=== PATIENT | female | born 1940 | race Caucasian/White ===

== ENCOUNTER 2025-05-17 20:41 | Emergency (ER) | payer MEDICARE, OTHER ==
[~2025-05-17] VITALS: Ht 162.6 cm; Wt 61.8 kg
[~2025-05-17 20:41] MED LIST: ATOR40TA PO; LISI20TA28 PO; PROP10TA10 PO
[2025-05-17 20:49] VITALS: TEMP 97.6
--- NOTE | 2025-05-17 20:58 | Physician Documentation ---
History of Present Illness ~ Chief Complaint: Mechanical Fall Stated Complaint: FALL Time Seen by MD: 20:58 Primary Medical Doctor: ELVA CLARK Source: patient, family HPI This is an 84-year-old female who presents after a ground level slip and fall striking her right hip and right wrist, patient reports a skin tear to the right wrist and tenderness to the right hip. Patient reports no head strike, no loss of consciousness, and no blood thinner use. Patient reports she is able to ambulate without pain. Tetanus within 5 Years?: No Medication Reconciliation Allergies: Coded Allergies: No Known Allergies (Unverified , 05/17/23) Scheduled Atorvastatin Calcium* (Lipitor*), 1 TAB PO DAILY, (Reported) Lisinopril (Lisinopril), 20 MG PO Q24H Scheduled PRN Propranolol Hcl* (Inderal*), 1 TAB PO DAILY PRN for for anxiety/agitation, (Reported) Past Medical History Past Medical History: High Cholesterol, Hypertension, Anxiety Other Past Surgical History: skin cancer removal Alcohol Use: Rarely Drug Use: none Lives In: Home Review of Systems ROS As stated above in the HPI, otherwise all systems are reviewed and negative. Physical Exam Physical Exam VITALS: Reviewed and as above. GENERAL: Alert, nontoxic appearing, no apparent distress. HEENT: No facial swelling or ecchymosis, no tenderness to palpation to the scalp and neck including no C-spine tenderness RESPIRATORY: No increased work of breathing, no respiratory distress, speaking in full clear sentences MUSCULOSKELETAL: Right lateral hip mild tenderness to palpation, right knee no tenderness to palpation, right shoulder no tenderness to palpation SKIN: 5 cm crescent shaped skin tear to the posterior aspect of the right wrist Progress Results/Orders Results/Orders Orders - SONIA MCDONNELL Hip Unilateral 2 Views (05/17/25 21:10) Wrist, Complete (3vw Min) (05/17/25 21:10) Completed Orders - SONIA MCDONNELL Hip Unilateral 2 Views (05/17/25 21:10) Wrist, Complete (3vw Min) (05/17/25 21:10) Vital Signs 05/17/25 05/17/25 20:49 22:55 Temp 97.6 Pulse 62 60 Resp 16 16 B/P (MAP) 124/88 123/82 Pulse Ox 97 99 EKG/XRAY/CT/US/VASC/MRI Bone/Soft Tissue X-Ray (Ext.) #1: Additional Comment Exam: WRIST, COMPLETE (3VW MIN) CLINICAL INDICATION: Fall RIGHT TECHNIQUE: DI WRIST, COMPLETE (3VW MIN) Comparison: None FINDINGS/IMPRESSION: : There is no evidence of acute fracture or dislocation. 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 Bony demineralization. Alignment is maintained. Electronically Signed by:PAULA CARSON MD Date & Time: 05/17/252227 Dictated by: PAULA CARSON MD Dictation date and time: 05/17/252227 I have reviewed and agree with the radiology report. I have reviewed and interpreted the imaging as: No fracture or dislocation Bone/Soft Tissue X-Ray (Ext.) #2: Additional Comment Exam: HIP UNILATERAL 2 VIEWS CLINICAL INDICATION: Fall RIGHT TECHNIQUE: DI HIP UNILATERAL 2 VIEWS Comparison: None FINDINGS/IMPRESSION: : There is no evidence of acute fracture or dislocation. Calcified athero sclerosis. Visualized bowel gas is nonobstructed. Electronically Signed by:PAULA CARSON MD Date & Time: 05/17/252326 Dictated by: PAULA CARSON MD Dictation date and time: 05/17/252326 I have reviewed and agree with the radiology report. 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 I spoke with senior living staff who confirmed injury was from a slip and fall and that the wound was cleaned prior to patient being sent to the emergency department. It was reassuring patient was able to walk after the incident and has no limitation of range of motion in any limbs. Limbs were neurovascularly intact. Additionally physical exam was benign without evidence of any other injury with the exception of the skin tear to the forearm which on physical exam there was no evidence of retained foreign body, the skin tear was cleaned and dressed by nursing staff and home care instructions were provided to the patient and her family member to be carried out by her senior living staff. Follow up instructions and return to care precautions discussed with patient and her family member who verbalized understanding. Differential Dx:Considerations: Include: Closed head injury, Cardiac injury, Fracture(s), Pneumothorax, Cerebral contusion, Spine injury, Vascular injury, Abrasion(s), Foreign body(s), Laceration(s), Other (dislocation, neurovascular injury) Departure Time of Disposition: 22:44 Disposition: 01 HOME / SELF CARE / HOMELESS Impression: Primary Impression: Skin tear of right forearm without complication Qualified Codes: S51.811A - Laceration without foreign body of right forearm, initial encounter Additional Impressions: Fall Qualified Codes: W19.XXXA - Unspecified fall, initial encounter Hip pain Qualified Codes: M25.551 - Pain in right hip Condition: Improved Discharge Instructions: Skin Tear, [id number] Additional Instructions: Keep the area clean dry and covered, please have staff change the Steri-Strips as needed as they fall off, you may require the Steri-Strips on for as long as 10 to 14 days though I suspect the wound will heal before that. Change the dressing over the Steri-Strips at least once a day, gently wash the area daily, change the dressing sooner if it becomes soiled. Please follow up with your primary care provider in the next few days. Please return to the emergency department for any new or worsening concerning symptoms. Referrals: NO PRIMARY CARE PROVIDER (PCP) Education Educated: Patient Educated regarding: diagnosis, treatment, prognosis, need for follow up Signature Scribe Signature: No scribe Attestation: The note accurately reflects work and decisions made by me.DAVIDSON Martinez 05/19/25 15:14 SONIA MCDONNELL May 17, 2025 20:58
--- NOTE | 2025-05-17 22:30 | RADIOLOGY REPORT ---
CLINICAL INDICATION: Fall RIGHT TECHNIQUE: DI WRIST, COMPLETE (3VW MIN) Comparison: None FINDINGS/IMPRESSION: : There is no evidence of acute fracture or dislocation. 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 Bony demineralization. Alignment is maintained.
[2025-05-17 22:55] VITALS: BP 123/82; PULSE 60; RESP 16; O2SAT 99
--- NOTE | 2025-05-17 23:30 | RADIOLOGY REPORT ---
CLINICAL INDICATION: Fall RIGHT TECHNIQUE: DI HIP UNILATERAL 2 VIEWS Comparison: None FINDINGS/IMPRESSION: : There is no evidence of acute fracture or dislocation. Calcified athero sclerosis. Visualized bowel gas is nonobstructed.
== END 2025-05-17 22:55 | disposition home or self-care (01) ==
LOC: ER 20:42
DX: S51.811A Laceration without foreign body of right forearm, initial encounter (principal); S61.511A Laceration without foreign body of right wrist, initial encounter; M25.551 Pain in right hip; E78.00 Pure hypercholesterolemia, unspecified; I10 Essential (primary) hypertension; F41.9 Anxiety disorder, unspecified; Z85.828 Personal history of other malignant neoplasm of skin; W01.0XXA Fall on same level from slipping, tripping and stumbling without subsequent striking against object, initial encounter; Y93.89 Activity, other specified; Y92.89 Other specified places as the place of occurrence of the external cause; Y99.8 Other external cause status
CPT/HCPCS: 73110; 73502; 99284; A6258; A6402; A6449